=== PATIENT | male | born 1990 | race American Indian/Alaskan Native ===

== ENCOUNTER 2017-08-27 00:51 | Emergency (ER) | payer MEDICAID ==
--- NOTE | 2017-08-27 02:52 | Emergency Department Report ---
Head Injury w/o Laceration - HPI Chief Complaint: Head Injury Stated Complaint: HEAD INJURY Time Seen by Provider: 08/27/17 02:24 Occurred When: Today Mechanism: Direct Blow Head Inj w/o Lac: Yes Headache (pain on left aprietal scalp), No Loss of Consciousness (dazed for 5 minutes), No Nausea, No Blurred Vision, No Altered Mental Status, No Focal Deficit, No Swelling, No Bruising, No Break in Skin, No Bleeding Other History: 27-year-old male past medical history none presents with complaint of headache status post accidentally hitting his head on the bottom of a staircase approximately 2 hours ago. Patient states that he was sitting beneath the staircase outside of his hotel and when he stood up off of a chair he accidentally hit his head on the bottom of the staircase landing. Denies loss of consciousness but states that he was dazed for a few moments. Patient is awake alert and oriented 3 no laceration sustained. Patient is ambulatory and moving all 4 extremities without difficulty. Denies alcohol or drug use. Patient is fully lucid and answering questions appropriately. ED General PMH - Past Medical History General Medical History: no medical history Surgical History: no surgical history - Family History Significant Family History: no pertinent family hx - Social History Smoking Status: Never Smoker ED Neuro ROS - Review of Systems Constitutional: no symptoms reported Eyes (ROS): no symptoms reported Ears, Nose, Mouth, Throat: no symptoms reported Respiratory: no symptoms reported Cardiology: no symptoms reported Gastrointestinal/Abdominal: diarrhea Genitourinary: no symptoms reported Musculoskeletal: no symptoms reported Skin: no symptoms reported Neurological: no symptoms reported Endocrine: no symptoms reported Hematologic/Lymphatic: no symptoms reported All Other Systems: Reviewed and Negative Head Injury W/O Lac Exam - Exam General: Vital signs noted. No distress. Alert and acting appropriately. Adult Head Front + Back: 1 - Patient complaining of some pain here on palpation. No visible hematoma or laceration. No palpable Skull fracture. Head: Yes Pupils are PERRL, No Hemotympanum, No Hematoma/Ecchymosis, No Epistaxis, No Stepoff/Deformity, No Laceration, No Abrasion Chest, Abd, & Ext: Yes Clear Lung Sounds, Yes Regular Heart Rhythm, No Neck Pain (no midline tenderness on clinical exam), No Chest Injury/Pain, No Heart Murmur, No Abdominal Tenderness, No Back Tenderness, No Extremity Injury Neuroligical (Head Inj W/O Lac: Yes Normal Speech, Yes Normal Gait, No Lethargy , No Disorientation, No Focal Numbness, No Focal Weakness ED Critical Care Note - Critical Care Note Comments: A/P: Minor head injury, possible concussion 1-CT scan unremarkable 2- naproxen when necessary 3- NEXUS and [place] C-spine criteria negative for any need for C-spine imaging. Cranial nerves 2, 3, 4, 5, 6, 7, 8,10, 11, 12 intact on clinical exam , patient is fully lucid awake alert and oriented 3 conversant. Denies any upper or lower extremity paresthesias and has 5/5 strength in bilateral upper and lower extremities on clinical exam. 3- follow-up with primary medical doctor this week 4- patient given concussion precautions, instructed to return to the ED for any confusion, lethargy, chest pain, shortness of breath, abdominal pain, inability to tolerate by mouth, paresthesias, inability to ambulate. 5- pt independently ambulatory without assistance upon discharge. Being picked up from the ED by family member and driven home by family member. ED Disposition Clinical Impression: Post concussion syndrome Minor head injury Qualifiers: Encounter type: initial encounter Qualified Code(s): S00.90XA - Unspecified superficial injury of unspecified part of head, initial encounter Disposition: TO HOME OR SELFCARE Is pt being admited?: No Does the pt Need Aspirin: No Condition: Stable Instructions: Minor Head Injury (ED), Post Concussion Syndrome (ED) Prescriptions: Naproxen 500 mg PO BID PRN #30 tablet PRN Reason: Headache Referrals: [facility] [Outside] - 3-5 Days [facility] [Outside] - 3-5 Days Forms: Work/School Release Form(ED) Time of Disposition: 04:15
--- NOTE | 2017-08-27 03:07 | Cat Scan Report ---
FINAL REPORT EXAM: CT HEAD/BRAIN WO CON HISTORY: headache COMPARISON: None available. TECHNIQUE: Axial images obtained skull base through vertex. FINDINGS: No acute intracranial hemorrhage, midline shift or pathologic extra axial fluid collection. Ventricles and cisterns are normal in size and configuration for the patient's age. Turpin-white differentiation preserved. Calvarium grossly intact. Visualized para-nasal sinuses and mastoid air cells are clear. IMPRESSION: No grossly acute intracranial abnormality.
[2017-08-27 05:57] VITALS: BP 115/74
== END 2017-08-27 04:04 | disposition home or self-care (01) ==
LOC: ED 00:51
DX: S00.00XA Unspecified superficial injury of scalp, initial encounter (principal); F07.81 Postconcussional syndrome; W22.01XA Walked into wall, initial encounter; Y93.89 Activity, other specified; Y92.89 Other specified places as the place of occurrence of the external cause; Y99.8 Other external cause status
CPT/HCPCS: 70450